=== PATIENT | female | born 1955 | race Caucasian/White ===

== ENCOUNTER → 2016-08-28 | Outpatient (CLI) | payer OTHER ==
[~2016-08-28] MED LIST: ESCI10TA17 PO; MIRT15TA PO; MULTCAP42 PO; OMEG12006 PO; ONDA4TAB10 SL; OXYC-57 PO; PRMVC VAGRING; RIZA10TA18 PO; [UNRECOGNIZED DRUG - OTHER] EXT
--- NOTE | 2016-08-28 13:30 | MAMMOGRAPHY REPORT ---
BILATERAL DIGITAL SCREENING MAMMOGRAM TOMOSYNTHESIS WITH CAD: 08/28/2016 CLINICAL HISTORY: Routine screening. Patient has no complaints. TECHNIQUE: Breast tomosynthesis in addition to standard 2D mammography was performed. Current study was also evaluated with a Computer Aided Detection (CAD) system. COMPARISON: Comparison is made to exams dated: 08/23/2015 mammogram, 09/08/2014 ultrasound, 09/08/2014 mammogram, 08/21/2014 mammogram, 04/22/2012 mammogram, and 04/15/2011 mammogram - [facility]. BREAST COMPOSITION: The tissue of both breasts is heterogeneously dense, which may obscure small ma sses. FINDINGS: No suspicious masses, calcifications, or areas of architectural distortion are noted in e ither breast. There has been no significant interval change compared to prior exams. IMPRESSION: ACR BI-RADS CATEGORY 1: NEGATIVE There is no mammographic evidence of malignancy. A 1 year screening mammogram is recommended. The p atient will receive written notification of the results. Approximately 10% of breast cancers are not detected with mammography. A negative mammographic repor t should not delay biopsy if a clinically suggestive mass is present. Jillian lEias M.D. ah/:08/28/2016 12:44:55 Ring Packer: Kat Collier, [facility] letter sent: Normal /2 BI-RADS Code: ACR BI-RADS Category 1: Negative
== END | disposition home or self-care (01) ==
LOC: C.MAMM 08:23
PROVIDERS: ATTEND Obstetrics & Gynecology
DX: Z12.31 Encounter for screening mammogram for malignant neoplasm of breast (principal)

== ENCOUNTER → 2016-09-24 | Outpatient (CLI) | payer OTHER ==
[2016-09-26 14:35] LABS: HERPES SIMPLEX CULT SOURCE GENITAL-EXTERNAL LAB; HERPES SIMPLEX VIRUS CULT ISOLATED (NOT ISOLATED)
[2016-09-29 11:55] LABS: HSVTYPE2REFLEX ONLY!DON'T ORDR ISOLATED (NOT ISOLATED)
== END | disposition home or self-care (01) ==
LOC: C.LABSPEC 12:53
PROVIDERS: ATTEND Obstetrics & Gynecology
DX: N94.9 Unspecified condition associated with female genital organs and menstrual cycle (principal)

== ENCOUNTER 2016-11-18 06:44 | Emergency (ER) | payer OTHER ==
[~2016-11-18] VITALS: Ht 165.1 cm; Wt 64.9 kg
[~2016-11-18 06:44] MED LIST changes: -ESCI10TA17 PO; -MIRT15TA PO; -ONDA4TAB10 SL; -OXYC-57 PO; -PRMVC VAGRING
[2016-11-18 06:47] VITALS: TEMP 36.3; Ht 165.1 cm; Wt 64.9 kg
[2016-11-18] MEDS ORDERED: KETOROLAC TROMETHAMINE 30 MG/ML VIAL IV STA (06:56)
[2016-11-18] MEDS ORDERED: SODIUM CHLORIDE 0.9% 1000ML 1,000 ML IV STA (06:56)
[2016-11-18] MEDS ORDERED: HYDROmorphone INJ 0.5 MG/0.5 ML SYR IV STA ×2 (06:56→08:52)
[2016-11-18] MEDS ORDERED: ONDANSETRON INJ 2 MG/ML 2 ML VIAL IV STA (06:56)
--- NOTE | 2016-11-18 07:00 | EMERGENCY ROOM VISIT NOTE ---
History Report prepared by Mao: Sera Matthew Under the Supervision of: Dr. Troy Patrick M.D. First contact with patient: 06:51 Chief Complaint: ABDOMINAL PAIN Stated Complaint: SEVERE ABDOMINAL PAIN History of Present Illness The patient is a 61 year old female who presents to the Emergency Room with complaints of persistent abdominal pain that began around 0300 but worsened around 0600. She currently rates her discomfort as a 7/10 in severity. The patient states that she has been fighting insomnia and anxiety, noting that she has been up since 0100. The patient states that around 0300 she got up to urinate, but states that she could not go and was experiencing sharp pains. She states that around 0600 she developed lower abdominal pain. The patient notes a history of a section several years ago, but states that she still has her gallbladder and appendix. She additionally notes a history of a kidney stone thirty years ago, but is unsure if her pain is similar today. The patient denies taking anything for discomfort today. She reports normal bowel movements and denies any vomiting. Source of History: patient Onset: 0300 this morning Position: abdomen Symptom Intensity: 7/10 Quality: sharp Timing: other (persistent) Associated Symptoms: No vomiting Review of Systems See HPI for pertinent positives & negatives. A total of 10 systems reviewed and were otherwise negative. Past Medical & Surgical Medical Problems: (1) section (2) Kidney stone (3) Migraine Family History Diabetes mellitus Heart disease Hypertension Hypothyroidism Kidney disease Kidney stones Social History Smoking Status: Never Smoker Smokeless Tobacco Use: No Alcohol Use: occasionally Marital Status: Housing Status: lives with family Occupation Status: unemployed Current/Historical Medications Scheduled Escitalopram (Lexapro), 10 MG PO DAILY Estrogens, Conjugated (Premarin), 1 APPLN VAGRING 2XWK Mirtazapine (Remeron), 7.5 MG PO QPM Ondasetron Odt (Zofran Odt), 4 MG SL Q6H Scheduled PRN Oxycodone/Acetaminophen 5MG/325MG (Percocet 5MG/325MG), 1-2 TAB PO Q4H PRN for Pain Allergies Coded Allergies: No Known Allergies (Unverified , 11/18/16) Physical Exam Vital Signs Date Time Temp Pulse Resp B/P Pulse Ox O2 Delivery O2 Flow Rate FiO2 4/25/17 14:35 69 18 132/68 96 11/18/16 13:05 64 18 139/73 95 Room Air 11/18/16 11:48 61 18 123/80 98 Room Air 11/18/16 10:22 50 16 150/78 95 Room Air 11/18/16 09:05 58 20 118/65 100 Room Air 11/18/16 07:59 66 11/18/16 07:48 57 14 144/92 99 Room Air 11/18/16 06:47 36.3 93 20 123/54 95 Room Air Physical Exam GENERAL: Patient is a healthy-appearing well-nourished HEAD: Normocephalic atraumatic EYES: Ocular movements intact pupils equal and react to light OROPHARYNX mucous membranes are moist no exudates present no erythema or edema present NECK: Supple no nuchal rigidity CHEST: Good equal expansion LUNGS: Clear and equal to auscultation CARDIAC: Normal S1 and S2 ABDOMEN: Soft nontender no guarding BACK: No CVA tenderness EXTREMITIES: No pain upon palpation normal muscle strength in all groups no clubbing cyanosis or edema NEURO: Patient is following commands is answering questions appropriately. Alert and oriented x3 Cranial Nerves 2-12 grossly intact Medical Decision & Procedures ER Provider Diagnostic Interpretation: CT results as stated below per my review and radiologist interpretation: CT SCAN OF THE ABDOMEN AND PELVIS WITHOUT CONTRAST CLINICAL HISTORY: Left flank pain COMPARISON STUDY: 12/23/2012 TECHNIQUE: CT scan of the abdomen and pelvis was performed from the lung bases to the proximal femurs. Images are reviewed in the axial, sagittal, and coronal planes. IV contrast was not administered for this examination. CT DOSE: 417.56 mGy.cm FINDINGS: Lower chest: The heart is normal in size and configuration, without pericardial effusion. The lung bases and pleural spaces are clear. Liver: The unenhanced liver is normal in size, contour, and attenuation. There is no intrahepatic biliary ductal dilatation. Gallbladder: Unremarkable. Spleen: Normal in size and attenuation. Pancreas: Unremarkable. Adrenal glands: There is mild left adrenal gland thickening similar to the preceding study. Kidneys: No renal, ureteral, or bladder calculi are visualized. Bowel: There are no transition zones indicate bowel obstruction. There are no findings to indicate acute diverticulitis. There are no findings to indicate acute appendicitis. Peritoneum: There is no intraperitoneal free air or abdominal ascites. Vasculature: The abdominal aorta is normal in course and caliber. Adenopathy: None. Pelvic viscera: The bladder, and pelvic viscera are unremarkable. Skeletal structures: No destructive osseous lesions are seen. IMPRESSION: 1. No renal, ureteral, or bladder calculi identified 2. No evidence of bowel obstruction. No evidence of free air 3. Stable left adrenal thickening 4. No acute inflammatory changes Electronically signed by: Donavon Nugent M.D. 11/18/2016 7:41 AM Dictated Date/Time: 11/18/2016 7:37 AM ABDOMEN AND PELVIS CT WITH IV AND ORAL CONTRAST CT DOSE: 268.95 mGy.cm HISTORY: Pt c/o diffuse abd pain TECHNIQUE: Multiaxial CT images of the abdomen and pelvis were performed following the use of intravenous and oral contrast. COMPARISON STUDY: Abdomen and pelvis CT 11/18/2016. FINDINGS: A 5 mm hypodense lesion within the left hepatic lobe is too small to characterize. Otherwise, the liver, spleen, pancreas, gallbladder, right adrenal gland, and kidneys are unremarkable. No hydronephrosis. No retroperitoneal lymphadenopathy. Small diverticulum at the second portion of the duodenum. The bladder, uterus, bilateral adnexa are unremarkable. No bowel wall thickening or obstruction. Normal appendix. The lung bases are clear. No pneumoperitoneum. No pneumatosis. No fractures within the visualized osseous structures. IMPRESSION: 1. No bowel wall thickening or obstruction. 2. Normal appendix. 3. No hydronephrosis. Electronically signed by: Donell Ceja M.D. 11/18/2016 12:41 PM Dictated Date/Time: 11/18/2016 12:34 PM Laboratory Results 11/18/16 07:00 Red Blood Count 4.98, Mean Corpuscular Volume 93.0, Mean Corpuscular Hemoglobin 30.7, Mean Corpuscular Hemoglobin Concent 33.0, Mean Platelet Volume 10.6, Neutrophils (%) (Auto) 62.3, Lymphocytes (%) (Auto) 27.6, Monocytes (%) (Auto) 9.0, Eosinophils (%) (Auto) 0.8, Basophils (%) (Auto) 0.2, Neutrophils # (Auto) 5.45, Lymphocytes # (Auto) 2.42, Monocytes # (Auto) 0.79, Eosinophils # (Auto) 0.07, Basophils # (Auto) 0.02 11/18/16 07:00 Test 11/18/16 07:00 11/18/16 08:35 White Blood Count 8.76 K/uL (4.8-10.8) Red Blood Count 4.98 M/uL (4.2-5.4) Hemoglobin 15.3 g/dL (12.0-16.0) Hematocrit 46.3 % (37-47) Mean Corpuscular Volume 93.0 fL (80-100) Mean Corpuscular Hemoglobin 30.7 pg (25-34) Mean Corpuscular Hemoglobin Concent 33.0 g/dl (32-36) Platelet Count 178 K/uL (130-400) Mean Platelet Volume 10.6 fL (7.4-10.4) Neutrophils (%) (Auto) 62.3 % Lymphocytes (%) (Auto) 27.6 % Monocytes (%) (Auto) 9.0 % Eosinophils (%) (Auto) 0.8 % Basophils (%) (Auto) 0.2 % Neutrophils # (Auto) 5.45 K/uL (1.4-6.5) Lymphocytes # (Auto) 2.42 K/uL (1.2-3.4) Monocytes # (Auto) 0.79 K/uL (0.11-0.59) Eosinophils # (Auto) 0.07 K/uL (0-0.5) Basophils # (Auto) 0.02 K/uL (0-0.2) RDW Standard Deviation 45.5 fL (36.4-46.3) RDW Coefficient of Variation 13.3 % (11.5-14.5) Immature Granulocyte % (Auto) 0.1 % Immature Granulocyte # (Auto) 0.01 K/uL (0.00-0.02) Anion Gap 6.0 mmol/L (3-11) Est Creatinine Clear Calc Drug Dose 62.5 ml/min Estimated GFR () 85.7 Estimated GFR (Non- 74.0 BUN/Creatinine Ratio 21.4 (10-20) Calcium Level 9.3 mg/dl (8.5-10.1) Total Bilirubin 0.9 mg/dl (0.2-1) Direct Bilirubin 0.2 mg/dl (0-0.2) Aspartate Amino Transf (AST/SGOT) 16 U/L (15-37) Alanine Aminotransferase (ALT/SGPT) 21 U/L (12-78) Alkaline Phosphatase 64 U/L (45-117) Total Protein 7.1 gm/dl (6.4-8.2) Albumin 4.1 gm/dl (3.4-5.0) Lipase 247 U/L (73-393) Urine Color YELLOW Urine Appearance CLEAR (CLEAR) Urine pH 7.0 (4.5-7.5) Urine Specific [place] 1.006 (1.000-1.030) Urine Protein NEG (NEG) Urine Glucose (UA) NEG (NEG) Urine Ketones NEG (NEG) Urine Occult Blood NEG (NEG) Urine Nitrite NEG (NEG) Urine Bilirubin NEG (NEG) Urine Urobilinogen NEG (NEG) Urine Leukocyte Esterase NEG (NEG) Labs reviewed by ED physician. Medications Administered Medications (Trade) Dose Ordered Sig/Michael Route Start Time Stop Time Status Last Admin Dose Admin Sodium Chloride (Nss 1000ml) 1,000 ml @ 999 mls/hr Q1H1M STAT IV 11/18/16 06:56 11/18/16 07:56 DC 11/18/16 07:06 999 MLS/HR Ketorolac Tromethamine (Toradol Inj) 30 mg NOW STAT IV 11/18/16 06:56 11/18/16 06:59 DC 11/18/16 07:06 30 MG Hydromorphone HCl (Dilaudid Inj) 0.5 mg NOW STAT IV 11/18/16 06:56 11/18/16 06:59 DC 11/18/16 07:07 0.5 MG Ondansetron HCl (Zofran Inj) 4 mg NOW STAT IV 11/18/16 06:56 11/18/16 06:59 DC 11/18/16 07:06 4 MG Hydromorphone HCl 0.5 mg 0.5 mg NOW STAT IV 11/18/16 08:52 11/18/16 08:53 DC 11/18/16 09:05 0.5 MG Promethazine HCl/ Sodium Chloride (Phenergan Inj/ Nss 50ml) 51 ml @ 204 mls/hr NOW STAT IV 11/18/16 08:52 11/18/16 09:06 DC 11/18/16 09:05 204 MLS/HR Metoclopramide HCl (Reglan Inj) 10 mg NOW STAT IV 11/18/16 09:47 11/18/16 09:48 DC 11/18/16 10:11 10 MG ED Course 0652: Past medical records reviewed. The patient was evaluated in room A10. A complete history and physical examination was performed. 0656: Ordered Zofran Inj 4 mg IV, Dilaudid Inj 0.5 mg IV, Toradol Inj 30 mg IV, Sodium Chloride 1000 ml @ 999 mls/hr IV. 0748: I reevaluated the patient and she is feeling better. I performed a repeat abdominal exam and she is nontender. 0858: Ordered Promethazine HCl 25 mg/Sodium Chloride 51 ml @ 204 mls/hr IV, Dilaudid Inj 0.5 mg IV. 0943: I reevaluated the patient and she is resting comfortably. 0947: Ordered Reglan Inj 10 mg IV. 1420: I reevaluated the patient and she is resting comfortably. I discussed the exam findings with her and I discussed the treatment plan. She verbalized complete understanding and agreement. She is ready to go home. Medical Decision Differential diagnosis: Etiologies such as appendicitis, diverticulitis, PUD, biliary pathology, UTI, pancreatitis, obstruction, mesenteric ischemia, aortic pathology, infections, inflammatory bowel disease, renal colic, as well as others were entertained This is a 61-year-old female who presents emergency department complaining of diffuse abdominal pain. The patient is very anxious and took some anxiety medication. She has a benign abdominal examination on exam. Serial abdominal examinations were performed on this patient in the emergency department and no tended patient exhibit a surgical abdomen or even abdominal tenderness. Based on these findings the patient was originally sent for CAT scan of the abdomen pelvis to rule out stone. This did not show any acute process. In addition the patient has a normal CBC normal renal profile normal liver profile normal lipase. An IV was established, patient given normal saline bolus, Toradol, Dilaudid, Reglan. Repeat examination revealed improvement in the patient's symptoms however the patient is uncomfortable going home and is continued to have abdominal pain. Based on these findings the patient was then sent for contrast CAT scan which again did not show any acute process. Based on these findings I felt that the patient was able to be discharged home. She was given pain medication in the event that the pain medication came back. I recommended she follow up with her primary care physician. Patient was in agreement with the treatment plan. Impression Primary Impression: Diffuse abdominal pain Scribe Attestation The scribe's documentation has been prepared under my direction and personally reviewed by me in its entirety. I confirm that the note above accurately reflects all work, treatment, procedures, and medical decision making performed by me. Departure Information Dispostion Home / Self-Care Prescriptions Ondasetron Odt (ZOFRAN ODT) 4 Mg Tab 4 MG SL Q6H for Nausea, #6 TAB Prov: Troy Patrick MD 11/18/16 Oxycodone/Acetaminophen 5MG/325MG (PERCOCET 5MG/325MG) Tab 1-2 TAB PO Q4H Y for Pain, #14 TAB Prov: Troy Patrick MD 11/18/16 Referrals No Doctor, Assigned (PCP) Forms HOME CARE DOCUMENTATION FORM, IMPORTANT VISIT INFORMATION, School Instructions, Work Instructions Patient Instructions ED Abd Pain Unkn Cause Fem, ED Diet Clear Liquid, My [facility] Additional Instructions Clear liquid diet next 48 hours You received narcotic or benzodiazepene medication while in the emergency room today. Do not drive, operate heavy machinery, or drink alcohol under the influence of this medication. Take 600 mg Ibuprofen every 6 hours Take Percocet for breakthrough pain You have been examined and treated today on an emergency basis only. This is not a substitute for, or an effort to provide, complete comprehensive medical care. It is impossible to recognize and treat all injuries or illnesses in a single emergency department visit. It is therefore important that you follow up closely with your PCP. Call as soon as possible for an appointment. Thank you for your time and consideration. I look forward to speaking with you again soon. Please don't hesitate to call us if you have any questions.
[2016-11-18 07:11] LABS: BASO % 0.2 %; BASO ABS # 0.02 K/uL (0-0.2); COMPLETE YES; EOS % 0.8 %; HEMATOCRIT 46.3 % (37-47); IG% 0.1 %; LYMPH % 27.6 %; LYMPH ABS # 2.42 K/uL (1.2-3.4); MEAN CORPUSCULAR HEMOGLOBIN 30.7 pg (25-34); MEAN PLATELET VOLUME 10.6 fL (7.4-10.4); NEUT % 62.3 %; PLATELET COUNT 178 K/uL (130-400); RED BLOOD COUNT 4.98 M/uL (4.2-5.4); WHITE BLOOD COUNT 8.76 K/uL (4.8-10.8)
[2016-11-18] MEDS ORDERED: ESCI10TA17 PO (07:16)
[2016-11-18] MEDS ORDERED: MIRT15TA PO (07:16)
[2016-11-18] MEDS ORDERED: PRMVC VAGRING (07:16)
[2016-11-18 07:32] LABS: BUN/CREATININE RATIO 21.4 (10-20); CALCIUM 9.3 mg/dl (8.5-10.1); CREATININE 0.85 mg/dl (0.60-1.20)
--- NOTE | 2016-11-18 07:43 | DIAGNOSTIC IMAGING REPORT ---
CT SCAN OF THE ABDOMEN AND PELVIS WITHOUT CONTRAST CLINICAL HISTORY: Left flank pain COMPARISON STUDY: 12/23/2012 TECHNIQUE: CT scan of the abdomen and pelvis was performed from the lung bases to the proximal femurs. Images are reviewed in the axial, sagittal, and coronal planes. IV contrast was not administered for this examination. CT DOSE: 417.56 mGy.cm FINDINGS: Lower chest: The heart is normal in size and configuration, without pericardial effusion. The lung bases and pleural spaces are clear. Liver: The unenhanced liver is normal in size, contour, and attenuation. There is no intrahepatic biliary ductal dilatation. Gallbladder: Unremarkable. Spleen: Normal in size and attenuation. Pancreas: Unremarkable. Adrenal glands: There is mild left adrenal gland thickening similar to the preceding study. Kidneys: No renal, ureteral, or bladder calculi are visualized. Bowel: There are no transition zones indicate bowel obstruction. There are no findings to indicate acute diverticulitis. There are no findings to indicate acute appendicitis. Peritoneum: There is no intraperitoneal free air or abdominal ascites. Vasculature: The abdominal aorta is normal in course and caliber. Adenopathy: None. Pelvic viscera: The bladder, and pelvic viscera are unremarkable. Skeletal structures: No destructive osseous lesions are seen. IMPRESSION: 1. No renal, ureteral, or bladder calculi identified 2. No evidence of bowel obstruction. No evidence of free air 3. Stable left adrenal thickening 4. No acute inflammatory changes Electronically signed by: Donavon Nugent M.D. 11/18/2016 7:41 AM Dictated Date/Time: 11/18/2016 7:37 AM
[2016-11-18 08:48] LABS: URINE APPEARANCE CLEAR (CLEAR); URINE BILIRUBIN NEG (NEG); URINE COLOR YELLOW; URINE NITRITE NEG (NEG); URINE SPECIFIC GRAVITY 1.006 (1.000-1.030); UROBILINOGEN NEG (NEG); ZZUR CULT IF INDIC CLEAN CATCH NO
[2016-11-18] MEDS ORDERED: PROMETHAZINE HCL INJ 25 MG in SODIUM CHLORIDE 0.9% 50ML 50 ML IV STA (08:52)
[2016-11-18 08:57] LABS: MANUAL MICROSCOPIC REQUIRED? NO; REVIEW REQ? NO
[2016-11-18] MEDS ORDERED: METOCLOPRAMIDE HCL INJ 5 MG/ML 2 ML VIAL IV STA (09:47)
[2016-11-18] MEDS ORDERED: OPTIRAY 320 IV PRN (10:00)
--- NOTE | 2016-11-18 12:43 | DIAGNOSTIC IMAGING REPORT ---
ABDOMEN AND PELVIS CT WITH IV AND ORAL CONTRAST CT DOSE: 268.95 mGy.cm HISTORY: Pt c/o diffuse abd pain TECHNIQUE: Multiaxial CT images of the abdomen and pelvis were performed following the use of intravenous and oral contrast. COMPARISON STUDY: Abdomen and pelvis CT 11/18/2016. FINDINGS: A 5 mm hypodense lesion within the left hepatic lobe is too small to characterize. Otherwise, the liver, spleen, pancreas, gallbladder, right adrenal gland, and kidneys are unremarkable. No hydronephrosis. No retroperitoneal lymphadenopathy. Small diverticulum at the second portion of the duodenum. The bladder, uterus, bilateral adnexa are unremarkable. No bowel wall thickening or obstruction. Normal appendix. The lung bases are clear. No pneumoperitoneum. No pneumatosis. No fractures within the visualized osseous structures. IMPRESSION: 1. No bowel wall thickening or obstruction. 2. Normal appendix. 3. No hydronephrosis. Electronically signed by: Donell Ceja M.D. 11/18/2016 12:41 PM Dictated Date/Time: 11/18/2016 12:34 PM
[2016-11-18] MEDS ORDERED: ONDA4TAB10 SL (14:24)
[2016-11-18] MEDS ORDERED: OXYC-57 PO (14:24)
[2016-11-18 14:35] VITALS: BP 132/68; PULSE 69; O2SAT 96
== END 2016-11-18 14:37 | disposition home or self-care (01) ==
LOC: C.EDB 06:46 → C.EDA 14:37
DX: R10.9 Unspecified abdominal pain (principal); Z87.442 Personal history of urinary calculi; G43.909 Migraine, unspecified, not intractable, without status migrainosus; Z83.3 Family history of diabetes mellitus; Z82.49 Family history of ischemic heart disease and other diseases of the circulatory system; Z84.1 Family history of disorders of kidney and ureter; Z79.899 Other long term (current) drug therapy

== ENCOUNTER → 2017-01-21 | Outpatient (CLI) | payer OTHER ==
[~2017-01-21] MED LIST changes: +ESCI10TA17 PO; +MIRT15TA PO; -MULTCAP42 PO; -OMEG12006 PO; +ONDA4TAB10 SL; +OXYC-57 PO; +PRMVC VAGRING; -RIZA10TA18 PO; -[UNRECOGNIZED DRUG - OTHER] EXT
== END | disposition home or self-care (01) ==
LOC: C.PAPS 11:20
PROVIDERS: ATTEND Obstetrics & Gynecology
DX: Z12.4 Encounter for screening for malignant neoplasm of cervix (principal)

== ENCOUNTER → 2017-08-31 | Outpatient (CLI) | payer OTHER ==
[~2017-08-31] MED LIST changes: -ONDA4TAB10 SL; -OXYC-57 PO
--- NOTE | 2017-08-31 15:04 | MAMMOGRAPHY REPORT ---
BILATERAL DIGITAL SCREENING MAMMOGRAM TOMOSYNTHESIS WITH CAD: 08/31/2017 CLINICAL HISTORY: Routine screening examination. TECHNIQUE: Breast tomosynthesis in addition to standard 2D mammography was performed. Current study was also evaluated with a Computer Aided Detection (CAD) system. COMPARISON: Comparison is made to exams dated: 08/28/2016 mammogram, 08/23/2015 mammogram, 09/08/2014 ul trasound, 09/08/2014 mammogram, 08/21/2014 mammogram, and 08/18/2013 mammogram - [facility]. BREAST COMPOSITION: The tissue of both breasts is heterogeneously dense, which may obscure small mas ses. FINDINGS: The parenchymal pattern is unchanged. No developing mass, architectural distortion or clus ter of suspicious microcalcifications is seen in either breast. IMPRESSION: ACR BI-RADS CATEGORY 2: BENIGN There is no mammographic evidence of malignancy. A 1 year screening mammogram is recommended. The pa tient will receive written notification of the results. Approximately 10% of breast cancers are not detected with mammography. A negative mammographic report should not delay biopsy if a clinically suggestive mass is present. Azalia May M.D. ay/:08/31/2017 14:09:38 Manager Balance: Kat ROBERTS(Narayan)(M), [facility] letter sent: Normal 1/2 BI-RADS Code: ACR BI-RADS Category 2: Benign
== END | disposition home or self-care (01) ==
LOC: C.MAMM 08:35
PROVIDERS: ATTEND Obstetrics & Gynecology
DX: Z12.31 Encounter for screening mammogram for malignant neoplasm of breast (principal)